=== PATIENT | male | born 1975 | race Caucasian/White ===

== ENCOUNTER 2020-07-23 21:31 | Inpatient (IN) | payer OTHER ==
[~2020-07-23] VITALS: Ht 180.3 cm; Wt 113.4 kg
[~2020-07-23 21:31] MED LIST: NORCO 5-325 TA1 EACH PO
[2020-07-23 21:37] VITALS: BP 102/57
[2020-07-23 22:06] LABS: HEMATOCRIT 40.7 % (42.0-52.0); MCH 29.7 pg (26.0-34.0); MCHC 34.4 g/dL (28.0-37.0); MCV 86.2 fL (80.0-100.0); MPV 7.7 fl. (7.2-11.1); NUCLEATED RBCS 0 /100WBC; PLATELET COUNT* 404 thou/uL (150-400); RBC 4.72 mil/uL (4.50-6.00); RDW-CV 13.3 % (10.5-14.5); WBC 8.5 thou/uL (4.0-11.0)
[2020-07-23 22:14] LABS: BE -2.1 mmol/L (-2 to +3); PCO2 28.3 mmHg (35.0-45.0); PO2 70.4 mmHg (75.0-100.0)
[2020-07-23 22:18] LABS: CALCIUM 8.1 mg/dL (8.5-10.1); CREATININE 2.1 mg/dL (0.6-1.3); POTASSIUM 3.2 mmol/L (3.5-5.1)
[2020-07-23 22:24] LABS: ALBUMIN 2.8 g/dL (3.4-5.0); MAGNESIUM 1.4 mg/dL (1.8-2.4); TOTAL PROTEIN 7.3 g/dL (6.4-8.2)
[2020-07-23 22:31] LABS: ABSOLUTE EOSINOPHILS 0.1 thou/uL (0.0-0.7); ABSOLUTE LYMPHOCYTES 0.4 thou/uL (0.8-5.3); ABSOLUTE MONOCYTES 0.2 thou/uL (0.0-1.2); ABSOLUTE NEUTROPHILS 7.8 thou/uL (1.6-8.1); PLATELET ESTIMATE INCREASED
[2020-07-23 23:31] LABS: APTT 32.7 Seconds (25.0-31.3); INR 1.1; PROTIME 11.3 Seconds (9.20-11.50)
[2020-07-24 00:18] LABS: URINE BLOOD TRACE (Negative); URINE CLARITY CLEAR; URINE COLOR YELLOW; URINE GLUCOSE-RANDOM TRACE (Negative); URINE KETONES TRACE (Negative); URINE LEUKOCYTES-REFLEX NEGATIVE (Negative); URINE PROTEIN 3+ (Negative); URINE SPECIFIC GRAVITY >= 1.030 (1.005-1.030)
[2020-07-24 00:24] LABS: ICTOTEST (BILI CONFIRMATORY) QNS (Negative); URINE BILIRUBIN 2+ (Negative); URINE NITRITE-REFLEX POSITIVE (Negative)
[2020-07-24 01:19] LABS: COARSE GRANULAR CASTS 0-3 Few /LPF (None Seen); SQUAMOUS 0-3 Few /LPF (0-3)
[2020-07-24 01:20] LABS: BACTERIA-REFLEX >30 Many /HPF (None Seen); URINE RBC None Seen /HPF (0-2); URINE WBC-REFLEX 6-15 Few /HPF (0-5)
[2020-07-24 01:21] LABS: CRYSTALS None Seen /LPF (None Seen)
[2020-07-24 03:55] VITALS: BP 96/37
--- NOTE | 2020-07-24 06:29 | NUR ---
CENTRAL LINE TRIPLE LUMEN PLACED AT 0535 FENTANYL 100MCG GIVEN IVP WHILE PLACING CENTRAL LINE PT WENT INTO SVT. ADENOSINE 6 MG GIVNE IVP AT 0531 DR PREPARING TO INTUBATE 0541 SUCCINYLCHOLINE 200MG IVP, ETOMIDATE 20MG IVP INTUBATED WITH 7.5 ETT 25 @RABIA LIP VERSED 5MG IVP GIVEN AT 0543 VERSED 5 MG IVP GIVEN AT 0553 VERSED GTT STARTED AT 5 AT 0601 DEXAMETHASONE 12 MG IVP AT 0548 CHARLES 16 FR INSERTED AT 0551 0558 XRAY VERIFIED ETT PLACEMENT OGT PLACEMENT AND CENTRAL LINE PALCEMENT PT PLACED ON VENT SETTING TV 400 RATE 14 FIO2 100% AMD PEEP 5
[2020-07-24 07:10] VITALS: BP 127/75
--- NOTE | 2020-07-24 07:13 | NUR ---
0630 [facility] HERE FOR TRANSPORT TO [facility]. PT PREPARED FOR TRANSPORT. PT DCD AT 0710 WITH [facility]. PROPOFOL GTT AND VERSED GTT DCD FOR TRANSPORT. [facility] CALLED AND NMOTIFIED OF PT RECIEVING CEFTRIAXONE AND KCL WAS STARTED ORDERED.
--- NOTE | 2020-07-24 11:21 | EKG ---
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 : 1975 Requested By: Maxine Culver Order Number: [id number] MD: Carlos Osborne Measurements Intervals [place] Rate: 103 P: 57 [place]: 124 QRS: 7 QRSD: 95 T: 110 QT: 373 QTc: 489 Interpretive Statements Sinus tachycardia Abnormal T, consider ischemia, lateral leads Baseline wander in lead(s) V3,V6 No previous ECG available for comparison Electronically Signed On 07-24-2020 11:21:00 CDT by Carlos Osborne [email or web address] <ELECTRONICALLY SIGNED> By: Carlos Osborne MD, [facility] 07/24/20 1121 52 52 Carlos Osborne MD, [facility] /EPI
--- NOTE | 2020-07-24 16:27 | EKG ---
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 : 1975 Requested By: Maxine Culver Order Number: [id number] Sadia MD: Carlos Osborne Measurements Intervals [place] Rate: 106 P: 58 MT: 129 QRS: 30 QRSD: 109 T: 114 QT: 456 QTc: 606 Interpretive Statements Sinus tachycardia Probable left atrial enlargement Low voltage, extremity leads Repol abnrm, prob ischemia, anterolateral lds Prolonged QT interval Baseline wander in lead(s) III,aVF,V2,V3,V4,V6 Compared to ECG 07/23/2020 21:53:21 Low QRS voltage now present Early repolarization now present Prolonged QT interval now present Possible ischemia still present Electronically Signed On 07-24-2020 16:26:58 CDT by Carlos Osborne [email or web address] <ELECTRONICALLY SIGNED> By: Carlos Osborne MD, [facility] 07/24/20 1626 0533 0533 Carlos Osborne MD, [facility] /EPI
== END 2020-07-24 06:50 | disposition short-term general hospital (02) | DRG 208 ==
LOC: M.ERS 21:31 → M.TBA-ER 07-24 01:49
PROVIDERS: Personal Emergency Response Attendant; ADMIT Internal Medicine; ATTEND Internal Medicine
PROC: 0BH18EZ Insertion of Endotracheal Airway into Trachea, Via Natural or Artificial Opening Endoscopic (ICD-10-PCS; principal; 2020-07-24)
PROC: 05HY33Z Insertion of Infusion Device into Upper Vein, Percutaneous Approach (ICD-10-PCS; 2020-07-24)
PROC: 5A1935Z Respiratory Ventilation, Less than 24 Consecutive Hours (ICD-10-PCS; 2020-07-24)
DX: U07.1 COVID-19 (principal); J96.01 Acute respiratory failure with hypoxia; I47.1 Supraventricular tachycardia; I10 Essential (primary) hypertension; Z79.899 Other long term (current) drug therapy

== ENCOUNTER 2020-09-06 17:16 | Inpatient (IN) | payer OTHER ==
[~2020-09-06] VITALS: Ht 180.3 cm; Wt 85.3 kg
--- NOTE | ~2020-09-06 | CON ---
[address] [address] CONSULTATION Name: GERALD RICK Room: [address] ADM IN M.R.#: [id number] Admission: 09/06/20 Attend Phys: Juan A Clinton MD Discharge: Date of : 79 Report #: [id number] THIS REPORT FOR: cc: FAM - No family physician/PCP FAM - No family physician/PCP Linda Posadas MD ~ DOC #: [id number] THADDEUS Schroeder DATE OF CONSULTATION: 09/22/2020 The patient does not have a PCP. REASON FOR CONSULTATION: Removal of PEG tube. Please note at the time of this dictation, the patient was seen and physically examined by myself. HISTORY OF PRESENT ILLNESS: This is a 45-year-old male who originally presented to the emergency room here at [place] on 07/23 with an acute appendicitis that had ruptured and was transferred to [place], also found to have COVID pneumonia. He underwent an exploratory laparotomy for that at that particular time then requiring a prolonged vent usage. He then underwent a trach and PEG tube placement on 08/[address] Marquez. He did an EGD that was completely normal with the placement of a 20-[place] PEG at 2.5 cm. The patient is no longer in need of his PEG tube. He has passed his video swallow and is anticipating going home here very soon. The patient is still on Eliquis because he developed a DVT during his hospital stay. PAST MEDICAL HISTORY: Recent COVID, perforated appendix. He had acute renal failure, gangrene of bilateral toes. He developed a left upper extremity DVT. PAST SURGICAL HISTORY: Exploratory lap, trach and PEG. FAMILY HISTORY: Noncontributory. SOCIAL HISTORY: He has a heavy alcohol use, quantity unknown; history of amphetamine use, but no known history of any smoking. REVIEW OF SYSTEMS: Twelve-point review of systems is essentially negative except what is mentioned in the HPI. ALLERGIES: None. MEDICATIONS: [place], [place] [address] CONSULTATION Name: GERALD RICK Room: [address] IN [facility]#: [id number] Admission: 09/06/20 Attend Phys: Juan A Clinton MD Discharge: Date of : 79 Report #: [id number] PHYSICAL EXAMINATION: VITAL SIGNS: Temperature 37.1, pulse 94, respirations 18, blood pressure 117/81. HEART: Regular rate and rhythm. LUNGS: Clear. ABDOMEN: Soft, positive bowel sounds in all 4 quadrants with a PEG tube noted in the upper abdomen. Site is clean without any drainage noted. LABORATORY DATA: Hemoglobin 11.4, white count is 11.3, platelets 527. IMPRESSION: 1. PEG tube removal. 2. Anticoagulant therapy, Eliquis, secondary to DVT. 3. Post COVID. 4. History of ruptured appendicitis with peritonitis. 5. History of heavy substance abuse, both alcohol and amphetamine. PLAN: 1. EGD today with Dr. Posadas to remove the PEG tube atraumatically secondary to his anticoagulant therapy that he needs to remain on. 2. Further recommendations to be made after the procedure has been performed. Thank you for allowing us to participate in this patient's care. Please do not hesitate to call with any questions in regard to this consult. MD ELIZ Villalta/HUE By: 0807 [id number] Posadas MD /nt
[2020-09-06] MEDS ORDERED: LORATIDINE 10 M10 M1 PO (19:31)
[2020-09-06] MEDS ORDERED: IPRAT-ALBUT 0.5-3 ML INH (19:32)
[2020-09-06] MEDS ORDERED: SEROQUEL XR1 EACH PO (19:35)
[2020-09-06] MEDS ORDERED: ALPRAZOLAM XR3 MG PO (19:37)
[2020-09-06] MEDS ORDERED: PERIDEX 0.12%473 M1 MUCOUS MEM (19:38)
[2020-09-06] MEDS ORDERED: PROTONIX40 M2 PO (19:40)
[2020-09-06] MEDS ORDERED: METOCLOPRAMIDE 55 M1 PO (19:41)
[2020-09-06] MEDS ORDERED: HUMALOG KW100 UNIT/1 (19:43)
[2020-09-06 20:00] VITALS: BP 103/68
--- NOTE | 2020-09-07 04:29 | NUR ---
PT ARRIVED TO FLOOR AT 1845 ACCOMPANIED BY GIRLFRIEND YUN SARAHI, HIS DPOA FROM [facility]. PT SETTLED INTO BED AND ADMISSION DATABASE COMPLETED. PT IS S/P COVID 19, PNEUMONIA, REMOVAL OF RUPTURED APPENDIX, SEPSIS. PER PT HE WAS IN A COMA FOR 38 OF THE PAST 45 DAYS. ALERT AND ORIENTED X4, COOPERATIVE WITH CARES. PT HAS TRACH AND PEG TUBE. TAKES SOME MEDS PER TUBE AND SOME MEDS PO. RT TO ROOM TO ASSIST WITH TREATMENTS AND TRACH SUCTIONING. COPIOUS AMOUNTS OF THICK MUCOUS SUCTIONED. PT DOES NOT HAVE EXTRA OBDURATOR AT BEDSIDE, CALL CENTER RN ADVISED. CURRENT TRACH IS A PORTECH WITH 7.5 INNER DIAMETER AND 10.5 OUTER DIAMETER. ADVISED THAT EXTRA TRACH MAY HAVE TO COME FROM [facility]. ALSO REQUESTED 10 ICELANDIC SUCTION CATHETERS. TRACH CARE PROVIDED WITH RT. PT HAS SPEAKING VALVE. RIGHT DOUBLE LUMEN IJ. ACCUCHECK AT HS WAS 93. PT ON CONTACT ISOLATION FOR MDR PSEUDOMONAS IN SPUTUM. VOIDED PER URINAL OVERNIGHT. PHOTOS TAKEN OF TOES ON BOTH FEET, IN PROCESS OF HEALING. HIMS, WOUND CARE AND PULMONARY CONSULTS ORDERED. CALL LIGHT IN REACH, BED ALARM ON FOR SAFETY. HOURLY ROUNDING IN PROGRESS, WILL CONTINUE TO MONITOR.
[2020-09-07 04:31] LABS: HEMATOCRIT 28.9 % (42.0-52.0); HEMOGLOBIN 10.2 gm/dL (14.0-18.0); MCH 32.7 pg (26.0-34.0); MCHC 35.2 g/dL (28.0-37.0); MCV 92.8 fL (80.0-100.0); MPV 7.7 fl. (7.2-11.1); RBC 3.12 mil/uL (4.50-6.00); RDW-CV 16.3 % (10.5-14.5); WBC 8.8 thou/uL (4.0-11.0)
[2020-09-07 05:07] LABS: CALCIUM 8.8 mg/dL (8.5-10.1); CREATININE 0.7 mg/dL (0.6-1.3); POTASSIUM 4.3 mmol/L (3.5-5.1)
[2020-09-07 07:44] VITALS: BP 104/75
--- NOTE | 2020-09-07 09:57 | NUR ---
WOUND NURSE: PATIENT SEEN TO ADDRESS WOUNDS AFFECTING DISTAL TOES ON RIGHT FOOT AND 1ST 3 DIGITS ON THE LEFT FOOT. ALL WITH STABLE BLACKENED ESCHARS AND DRIED LEATHERY EPIDERMIS. OFFERED PATIENT TO BE SEEN BY PERFORMANCE TESTER, BUT HE REFUSED STATING HE WANTS TO WAIT UNTIL IT'S CONFIRMED THAT HE IS INSURED THROUGH MEDICAID. RECOMMEND PAINTING AFFECTED TOES WITH BETADINE DAILY, LET DRY, AND LEAVE OPEN TO AIR. WILL CHANGE POT IF ESCHARS BECOME UNSTABLE. PATIENT INSTRUCTED ON MEASURES TO PROMOTE HEALING AND STATES HE UNDERSTANDS.
[2020-09-07 20:31] VITALS: BP 101/71
--- NOTE | 2020-09-08 05:55 | NUR ---
ASSUMED PT CARE AT 1930. PT ALERT AND ORIENTED X4, POLITE AND COOPERATIVE WITH CARES. PT RESTING IN BED AT SHIFT CHANGE ON 1.5L 02 PER NC. PT TRACH BEING HUMIDIFIED WHICH PT REQUESTED RT DC MIDSHIFT. TRACH CARE PROVIDED, NO SUCTIONING THIS SHIFT. PT VOIDED PER URINAL OVERNIGHT. TAKES PILLS WITH NECTAR THICKENED LIQUIDS. PT HAD TWO CHOCOLATE PUDDINGS TWICE SNACK. XANAX AT 0250 FOR ANXIETY. PT ON ISOLATION FOR MDR PSEUDOMONAS IN SPUTUM. PER [facility] TO TAKE PT TO [facility] WAITING ROOM FROM 10:00-11:00 TODAY TO SEE GIRLFRIEND AND THEIR CHILDREN. ATTEMPTS TO OBTAIN EXTRA TRACH FOR BEDSIDE CONTINUE. CALL LIGHT IN REACH, BED ALARM ON FOR SAFETY. HOURLY ROUNDING IN PROGRESS, WILL CONTINUE TO MONITOR.
[2020-09-08 08:10] VITALS: BP 108/73
--- NOTE | 2020-09-08 17:17 | NUR ---
I have reviewed the documentation by TELMA HOWARD from 09/04/20 to 09/08/20 and I concur with it. CHAD PADGETT
[2020-09-08 20:19] VITALS: BP 129/66
--- NOTE | 2020-09-09 05:11 | NUR ---
ASSUMED PT CARE AT 1930. PT ALERT AND ORIENTED X4, POLITE AND COOPERATIVE WITH CARES. PT RESTING IN BED AT SHIFT CHANGE. TAKES PILLS WHOLE WITH NECTAR THICKENED LIQUIDS WITHOUT DIFFICULTY. TRACH IN PLACE, SUCTIONED X1 BY RT. PT HAS SPEAKING VALVE. DOUBLE LUMEN IJ. ON SPECIAL CONTACT ISOLATION FOR MDR PSEUDOMONAS IN SPUTUM. VOIDED PER URINAL OVERNIGHT. TYLENOL X1 FOR GENERALIZED DISCOMFORT. ATIVAN X1 FOR ANXIETY. PT SLEPT MOST OF SHIFT. CALL LIGHT IN REACH, BED ALARM ON FOR SAFETY. HOURLY ROUNDING IN PROGRESS, WILL CONTINUE TO MONITOR.
[2020-09-09 10:39] VITALS: BP 113/71
[2020-09-09 10:42] LABS: HEMATOCRIT 31.6 % (42.0-52.0); HEMOGLOBIN 10.5 gm/dL (14.0-18.0); MCH 30.7 pg (26.0-34.0); MCHC 33.3 g/dL (28.0-37.0); MCV 92.1 fL (80.0-100.0); MPV 7.7 fl. (7.2-11.1); RBC 3.44 mil/uL (4.50-6.00); RDW-CV 15.9 % (10.5-14.5); WBC 7.7 thou/uL (4.0-11.0)
[2020-09-09 10:48] LABS: CALCIUM 8.9 mg/dL (8.5-10.1); CREATININE 0.6 mg/dL (0.6-1.3)
--- NOTE | 2020-09-09 18:32 | NUR ---
RECEIVED REPORT AROUND 0715. ASSUMED CARE. VS AND ASSESSMENT CHARTED. TRACH INTACT. PEG TUBE INTACT. NOT BEING USED. TRACH CARE DONE THIS SHIFT. MEDS GIVEN PER MAY. PT HAD ANXIETY THROUGH OUT SHIFT. TELE PSYCH VISITED VIA TELEMED THIS SHIFT. RECOMMENDATIONS GIVEN TO . THERAPIES WORKED WITH PT THIS SHIFT. HOURLY ROUNDING PERFORMED. ISOLATION INTACT. UPDATED ON PT. AT BEDSIDE NOW. PT VERY CONCERNED ABOUT TRACH AND PEG TUBE COMING. HOSPITALIST TODAY AWARE. . CALL LIGHT WITH IN REACH. WILL CONTINUE TO MONITOR.
[2020-09-09 20:18] VITALS: BP 111/70
--- NOTE | 2020-09-10 05:26 | NUR ---
ASSUMED PT CARE AT 1930. PT ALERT AND ORIENTED X4, POLITE AND COOPERATIVE WITH CARES. TYLENOL AT HS PER PT REQUEST. PT LESS ANXIOUS THIS SHIFT. TRACH SUCTIONED X1. ISOLATION CONTINUES. ON 2L 02 PER NC. STRONG PRODUCTIVE COUGH. CALL LIGHT IN REACH, BED ALARM ON FOR SAFETY. HOURLY ROUNDING IN PROGRESS, WILL CONTINUE TO MONITOR.
[2020-09-10 07:05] VITALS: BP 120/79
--- NOTE | 2020-09-10 17:20 | NUR ---
PT REMAINED ALERT AND ORIENTED. PT ANXIOUS THIS SHIFT, MEDS GIVEN. TALKED WITH PATIENT, HAD PATIENT WALK IN ROOM. PROVIDED WORD SEARCHES TO HELP CALM HIM DOWN. PUDDING GIVEN A SNACK. UP IN CHAIR FOR MEALS. FALL RISK PRECAUTIONS IN PLACE. HOURLY ROUNDING COMPLETED.
[2020-09-10 20:00] VITALS: BP 124/81
--- NOTE | 2020-09-11 06:31 | NUR ---
ASSUMED CARE AT 1915. ALERT AND ORIENTED. ANXIOUS. O2 2L NC. ISOLATION FOR MDR PSEUDOMONAS. LOOSE COOUGH. SPUTUM BEIGE AND THICK. DRSG CARE TO TRACH DONE. ATIVAN GIVEN FOR RESTLESSNESS. IV TL IJ CATHETER. USED URINAL. WANTS TO HAVE SHOWER TODAY. SLEPT SOME. CALL LIGHT IN REACH AND BED ALARM ON.
[2020-09-11 09:00] VITALS: BP 132/70
[2020-09-11 17:30] VITALS: BP 128/90
--- NOTE | 2020-09-11 18:26 | NUR ---
ALERT AND ORIENTED X4. UP WITH 1 ASSIST, GAIT BELT AND WALKER. IMPULSIVE AT TIMES. DENIES PAIN. CONTIENT OF BOWEL AND BLADDER. HAS PEG TUBE TO ABDOMEN. TRACH PATENT AT THIS TIME. MECROTIC TOES OPEN TO AIR. O2 SATS REMAINS IN 90'S ON ROOM AIR. ON MECH. CHOPPED DIET WITH NECTAR LIQUIDS FOR MEALS AND [place]LAYTON FREE WATER BETWEEN MEALS. ABDOMEN INCISIONS HEALED. USES CALL LIGHT FOR ASSIST. FALL PRECAUTIONS IN PLACE. BED ALARM AND CHAIR ALARM USED. ANXIOUS THIS EVENING AND ATIVAN GIVEN.
[2020-09-11 19:00] VITALS: BP 137/75
--- NOTE | 2020-09-11 22:16 | CON ---
[address] [address] CONSULTATION Name: PRABHJOTGERALD M Room: [address] IN M.R.#: [id number] Admission: 09/06/20 Attend Phys: Juan A Clinton MD Discharge: Date of : 79 Report #: [id number] THIS REPORT FOR: cc: TAMIE - No family physician/PCP TAMIE - No family physician/PCP Georges Washington MD ~ DOC #: [id number] Georges Washington MD DATE OF CONSULTATION: 09/08/2020 REQUESTING PHYSICIAN: Juan A Clinton MD INDICATION FOR CONSULTATION: New admission to rehabilitation. The patient has a tracheostomy. HISTORY OF PRESENT ILLNESS: This is a 45-year-old gentleman, past medical history includes a history of amphetamine as well as alcohol abuse. There is no known history of smoking. The patient was admitted to [facility]. After initially presenting to our hospital in the Emergency Room, he was found to have COVID-19 as well as acute pancreatitis. There was no ICU bed available in our hospital and therefore, he was transferred to [facility]. The patient did undergo an appendectomy. He did have peritonitis secondary to perforated appendix. He was on the ventilator. He did develop a DVT in the left upper extremity. Eventually, he had a tracheostomy. He is now off the ventilator. He is able to swallow. He is on a mechanical chopped diet with nectar thick liquids. He is currently off oxygen. He is wearing a speaking valve with his tracheostomy. The patient does have bilateral gangrene of toes. The patient did report mild shortness of breath at rest. He also is reported to have had thick yellow sputum production. He is reported to have had some crusting of secretions around his tracheostomy as well. The patient, however, did not appear to be in any distress and overall stated that he feels that he is improving. He does not have swelling of lower extremities or calf pain. There is no fever or chills. He does not describe upper respiratory complaints. PAST MEDICAL HISTORY: Recent COVID-19 as well as perforated appendix leading to peritonitis. Acute renal failure, from which he has recovered. His creatinine is now normal. Gangrene of bilateral toes, left upper extremity DVT, dysphagia. He is status post pigtail placement. He is now taking orally as well. SOCIAL HISTORY: There is a history of heavy alcohol use. There is also a history of amphetamine use. There [place] no [place] [address] CONSULTATION Name: GERALD RICK Room: [address] [place] [facility]#: [id number] Admission: 09/06/20 Attend Phys: Juan A Clinton MD Discharge: Date of : 79 Report #: [id number] ALLERGIES: No known drug allergies. CURRENT MEDICATIONS: The list is in NextGame and this is reviewed. PHYSICAL EXAMINATION: GENERAL: He is alert, awake, and oriented. VITAL SIGNS: His heart rate was around 100. Blood pressure of 108/73, respiratory rate 17. He is afebrile with a temperature of 36.8. HEENT: Head is normocephalic and atraumatic. He had a tracheostomy with a speaking valve in place. NECK: Does not show raised JVP. LUNGS: Breath sounds are bilaterally equal. No added sounds. HEART: Regular. He is mildly tachycardic. No murmur. ABDOMEN: Soft and nontender. LOWER EXTREMITIES: Show no edema, no calf tenderness. There is gangrene of his toes noted. LABORATORY DATA: The patient's lab work is in NextGame and this is reviewed. The patient's chest x-ray is reviewed which shows pulmonary infiltrates, but these are in fact better than his previous available chest x-rays. His creatinine has now normalized. ASSESSMENT AND PLAN: 1. Acute respiratory failure, status post tracheostomy. At this time, the patient is off oxygen. I would recommend administration of oxygen only if indicated per pulse ox. The patient does have thick secretions and has had some crusting in the tracheostomy as well. Therefore, in order to avoid mucus plugging, I recommend that we should remove the speaking valve at night between 9:00 p.m. and 6:[address] him on a trach shield with humidity in these hours. During the daytime, okay to leave him off the trach shield as long as he is wearing the speaking valve. If the patient does for any reason remove the speaking valve during the daytime, then in that case, I would recommend administering humidity with a trach shield during the day as well. 2. Pulmonary infiltrates. These, in fact, are looking better than previous available chest x-rays. I did repeat a chest x-ray today. Considering that the patient has ongoing thick mucus production from the tracheostomy, I went ahead and requested a sputum culture if this continues. However, it is noted that I understand he has already been extensively treated with antibiotics at [facility] and considering that his chest x-ray is also better, if we do have a positive culture, I would only recommend treating it if he is symptomatic from it as the positive culture could also indicate colonization. 3. Dysphagia, status post PEG. I understand he is taking orally now. I recommended strict aspiration precautions. I understand he is on a nectar thick liquid diet per the speech therapist. [address] [place] [address] CONSULTATION Name: GERALD RICK Sridhar Room: [address] ADM IN M.R.#: [id number] Admission: 09/06/20 Attend Phys: Juan A Clinton MD Discharge: Date of : 79 Report #: [id number] 4. Recent COVID-19. He is now off isolation. 5. Recent peritonitis secondary to appendicitis. 6. Acute renal failure, this has now resolved. 7. History of amphetamine and alcohol use. 8. Deep venous thrombosis. Continue Eliquis. He will need a followup venous Doppler of left upper extremity down the line. 9. Gangrene toes bilaterally. We will try to get more information from [place] regarding whether he was evaluated by [facility]. It will be possible that at a future time he needs amputation on parts of his toes. 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 Recommend continuing with physical therapy and occupational therapy. I will check on him again on Friday. Please call Dr. Moncada if any pulmonary issues during this weekend. Georges Washington MD AP/SIM/DUR <ELECTRONICALLY SIGNED> By: Georges Washington MD 09/11/20 2216 1609 0101AMD clay Moreno
--- NOTE | 2020-09-12 05:22 | NUR ---
ASSUMED CARES AT 1915. ALERT AND ORIENTED. PT VERY ANXIOUS AND RESTLESS/JITTERY IN THE EVENING. C/O NOT BEING ABLE TO SLEEP. PT REQUESTED AMBIEN AND SO THIS WAS GIVEN. PT QUESTIONING IF GABAPENTIN CAUSING RESTLESSNESS AND JITTERING. SAYS DOES NOT WANT TO TAKE ANY MEDS EXCEPT BLOOD THINNER. SAYS THAT IS WANTING TO GO HOME. TRACH CARE DONE. PT HAS PRODUCTIVE LOOSE COUGH. BILATEREAL GANGRENE TOES. PT HAS BEEN REFUSING TRACH SHIELD OVERNIGHT. MIN ASSIST WITH GAIT BELT AND WALKER. USED URINAL. SLEPT ONLY FEW HOURS. CALL LIGHT IN REACH AND BED ALARM ON.
[2020-09-12 07:48] VITALS: BP 136/86
--- NOTE | 2020-09-12 15:01 | NUR ---
INITIAL ASSESSMENT: PATIENT ADMITTED TO THE [facility] ON 09/06/20 WITH A DIAGNOSIS OF MYOPATHY. PT A&O, AND INDEPENDENT PRIOR TO HIS INITIAL ADMIT. PT RESIDES AT HOME WITH SPOUSE AND CHILDREN. PT USED 0 DME PRIOR TO ADMIT. PT HAS 0 PAST HX OF HH OR SNF. CM ORIENTED PT TO THE [facility] AND PROCESSES, RESIDENTS RIGHTS INFO, TEAM CONFRENCE AND TO THE ROLE OF CM. CM WILL REMAIN AVAILABLE TO ASSIST AND FOLLOW NEEDED.
--- NOTE | 2020-09-12 16:06 | NUR ---
PT WANTING TO LEAVE TODAY. PT EDUCATED ON NEED TO BE HERE AND WORK WITH THERAPIES SO HE COULD ADVANCE ENOUGH TO GO HOME. LINE DEPARTMENT SUPERVISOR, LINO, HERE TO TALK WITH PT. PT SEEN BY DR BECERRIL. SURGICAL CONSULT ORDERED FOR RECOMENDATIONS ON TRACH. TRACH REMOVED BY DR JEROME. SUTURES TO TRACH SITE LEFT IN PLACE. TO BE REMOVED IN 2 [address] JEROME. MEPILEX DRESSING IN PLACE. RIJ REMOVED. PSYCH CONSULT ORDERED BY DR VUONG. PT REPORTS THAT HIS MEDICATIONS ARE NOT HELPING. SEROQUEL TITRATED DOWN PER PSYCH RECOMENDATION. PT REFUSED ALL AM MEDS EXCEPT ELIQUIS. DR VUONG SPOKE WITH PT ABOUT TAKING HIS MEDICATIONS. PT TOOK 1400 GABAPENTIN AND PRN ATIVAN. PT HAS BEEN AGITATED ALL DAY. SPOKE WITH PT NUMOROUS TIMES TO GIVE REASSURANCE. PEG TUBE IN PLACE. PT TO HAVE VIDEO SWALLOW T[place]. FALL PRECAUTIONS IN PLACE. CALL LIGHT IN REACH. PT STATES THAT HE FEELS LIKE HE IS IN [facility]. PT TAKEN OUTSIDE BY GIANCARLO WITH PT.
--- NOTE | 2020-09-12 17:22 | NUR ---
TELEPSYCH CONSULT SCHEDULED FOR [place] AM BETWEEN 0700 AND 0900.
--- NOTE | 2020-09-12 19:08 | NUR ---
PT NOT TO HAVE OUTSIDE FOOD BROUGHT IN UNTIL CLEARED WITH SPEECH.
[2020-09-12 19:30] VITALS: BP 121/79
[2020-09-13 04:40] LABS: HEMATOCRIT 27.8 % (42.0-52.0); HEMOGLOBIN 9.6 gm/dL (14.0-18.0); MCH 30.6 pg (26.0-34.0); MCHC 34.5 g/dL (28.0-37.0); MCV 88.8 fL (80.0-100.0); MPV 7.5 fl. (7.2-11.1); RBC 3.13 mil/uL (4.50-6.00); RDW-CV 15.6 % (10.5-14.5); WBC 9.9 thou/uL (4.0-11.0)
[2020-09-13 04:45] LABS: CALCIUM 8.8 mg/dL (8.5-10.1); CREATININE 0.8 mg/dL (0.6-1.3); POTASSIUM 3.6 mmol/L (3.5-5.1)
--- NOTE | 2020-09-13 05:32 | NUR ---
ASSUMED CARES AT 1920. ALERT AND ORIENTED. ANXIOUS. PT WAS AGREEABLE TO TAKING BEDTIME MEDS. MELATONIN AND ATIVAN GIVEN. DRSG TO OLD TRACH SITE INTACT. BETADINE APPLIED TO NECROTIC TOES. MIN ASSIST WITH WALKER. USED URINAL. REMAINS ON ISOLATION. WAS ABLE TO SLEEP FEW HOURS. CALL LIGHT IN REACH AND BED ALARM ON.
[2020-09-13 08:16] VITALS: BP 129/87
--- NOTE | 2020-09-13 08:40 | NUR ---
THIS PLATE WASHER IS IN AGREEMENT WITH TREATMENT NOTE DOCUMENTED BY GERMAINE NEWMAN FOR THIS DAY. OSCAR BARRT
--- NOTE | 2020-09-13 09:41 | NUR ---
WOUND NURSE: PATIENT SEEN FOR FOLLOW UP ASSESSMENT PERTAINING TO GANGRENOUS TOES ON BILATERAL FEET. ALL REMAIN STABLE WITH INTACT ESCHARS AND NO DRAINAGE. PLAN TO CONTINUE THE SAME PLAN OF CARE.
--- NOTE | 2020-09-13 16:59 | NUR ---
PT WORKED WITH THERAPIES. UP WITH GAIT BELT, WALKER, AND ASSIST X1. DENIES NEED FOR PAIN MEDICATION. PRN ATIVAN GIVEN FOR ANXIETY. DIET ADVANCED AFTER SWALLOW STUDY TO REGULAR WITH THIN LIQUIDS. TOLERATING WELL. DR CHADWICK SPOKE WITH YUN Rose, TO UPDATE HER ON PT CONDITION AND ADDRESSED HER CONCERNS. FALL PRECAUTIONS IN PLACE. CALL LIGHT IN REACH.
[2020-09-13 20:08] VITALS: BP 135/81
--- NOTE | 2020-09-14 06:06 | NUR ---
ASSUMED CARES AT 1920. ALERT AND ORIENTED. ANXIOUS. SBA WITH GAIT BELT AND WALKER. PEG TUBE NOT IN USE. BILATERAL GANGRENE TOES. ATIVAN AND MELATONIN GIVEN. DRSG TO OLD TRACH SITE CHANGED. SLEPT MOST OF THE NIGHT. CALL LIGHT IN REACH AND BED ALARM ON.
[2020-09-14 07:50] VITALS: BP 116/78
--- NOTE | 2020-09-14 15:09 | NUR ---
TEAM CONFRENCE MEETING HELD YESTERDAY. PLAN TO RE-TEAM AND HAVE THE PT REMAIN ON THE UNIT FOR ANOTHER WEEK TO CONTINUE THERAPIES. PT AND SPOUSE IN AGREEMENT WITH THE PLAN. PT PROGRESSING WELL TOWARDS GOALS, BUT BARRIERS ARE ANXIETY, DEPRESSION, MANIPULATION, MEMORY, DEBILITY, FETIGUE, AND SOCIAL ISSUES. CM WILL REMAIN AVAILABLE TO ASSIST AND FOLLOW NEEDED.
--- NOTE | 2020-09-14 16:19 | NUR ---
PATIENT COMPLETED THERAPY THIS SHIFT ORDERED. PRN ATIVAN GIVEN X 1 THIS SHIFT ORDERED. VOIDING PER URINAL, BM NOTED THIS SHIFT. PER ST PATIENT WILL BE DISCHARGED FROM THEIR SERVICES STARTING TOMORROW. TRACH SITE CLEANED AND NEW MEPILEX PLACED, SUTURES TO BE REMOVED TOMORROW. GABAPENTIN WAS INCREASED PER TELE PYSCH RECOMMENDATIONS, NEW DOSE STARTED THIS AFTERNOON. PATIENT UP FREQUENTLY TO CHAIR.
[2020-09-14 20:23] VITALS: BP 137/92
--- NOTE | 2020-09-15 05:13 | NUR ---
ASSUMED PT CARE AT 1930. PT ALERT AND ORIENTED X4, POLITE AND COOPERATIVE WITH CARES. DRESSING TO OLD TRACH SITE C/D/I. BILATERAL GANGRENE TOES. PT USED URINAL TO VOID. NO STOOL THIS SHIFT. ATIVAN AND MELATONIN AT HS, PT SLEPT WELL. CALL LIGHT IN REACH, BED ALARM ON FOR SAFETY. HOURLY ROUNDING IN PROGRESS, WILL CONTINUE TO MONITOR.
[2020-09-15 07:50] VITALS: BP 109/73
--- NOTE | 2020-09-15 09:55 | NUR ---
I have reviewed the documentation by TELMA HOWARD from 09/11/20 to 09/15/20 and I concur with it. SERVANDO MCINTOSH
--- NOTE | 2020-09-15 16:58 | NUR ---
PATIENT COMPLETED THERAPIES THIS SHIFT ORDERED. UP WITH ASSISTANCE; GAIT BELT AND CANE. PRN ATIVAN GIVEN X 1 THIS AFTERNOON. SUTURES DC'D FROM TRACH SITE THIS AM PER ORDERS, SITE CLEANED AND DRESSING REPLACED. VOIDING PER URINAL, NO BM NOTED THIS SHIFT. PATIENT SO HERE AT BEDSIDE THIS EVENING.
--- NOTE | 2020-09-15 17:07 | PATH ---
[facility] [address] [place] [address] PATHOLOGY RPT PROCEDURE Name: TYLER RICK Room: [address] [place] .R.#: [id number] Admission: 09/06/20 Date of : 79 Discharge: Report #: [id number] Path Case #: [id number] [facility] Accession Number: [id number] . 01 Material submitted: . trachea - FOREIGN OBJECT . 01 Clinical history: . MYOPATHY . 02 Diagnosis: Gross diagnosis "from trachea": - Foreign body identified. (LAURA/db; 09/15/2020) LBQ 09/15/2020 1447 Local . 02 Electronically signed: . John Reed MD, Pathologist NPI- [id number] . 01 Gross description: . The specimen is received in formalin, labeled "Tyler Rick, from trachea" are 2 green brown cylindrical fragments of possible vegetable material measuring up to 4.5 x 1 x 0.8 cm for gross examination only. The specimen is photographed.([facility]; 09/10/2020) . KYLE/KYLE 09/10/2020 1838 Local . 02 Pathologist provided ICD-10: G72.9 . 02 CPT . [id number] Specimen Comment: A courtesy copy of this report has been sent to [phone] Specimen Comment: Report sent to Performed at: 01 [facility] [address], [place] [id number] MD Marcio Flores MD Phone: [phone] Performed at: 02 [facility] [address], [place], [place] [id number] MD John Reed MD Phone: [phone]
[2020-09-15 20:28] VITALS: BP 135/90
--- NOTE | 2020-09-16 05:29 | NUR ---
ASSUMED PT CARE AT 1930. PT ALERT AND ORIENTED X4, POLITE AND COOPERATIVE WITH CARES. PT UP WITH ASSIST OF ONE, GAIT BELT AND CANE TO BATHROOM TO VOID. STOOL X1 THIS SHIFT. PRN ATIVAN AND MELATONIN AT HS. VOIDED PER URINAL OVERNIGHT. NO C/O PAIN. SLEPT WELL. CALL LIGHT IN REACH, BED ALARM ON FOR SAFETY. HOURLY ROUNDING IN PROGRESS, WILL CONTINUE TO MONITOR.
[2020-09-16 07:41] VITALS: BP 117/85
--- NOTE | 2020-09-16 17:28 | NUR ---
PT UP WITH GAIT BELT AND CANE. AMBULATED WITH STB ASSIST IN HALLWAY. PRN ATIVAN GIVEN PER PT REQUEST. DENIES PAIN. FALL PRECAUTIONS IN PLACE. CALL LIGHT IN REACH.
[2020-09-16 19:00] VITALS: BP 136/64
--- NOTE | 2020-09-17 05:43 | NUR ---
ASSUMED PT CARE AT 1930. PT ALERT AND ORIENTED X4, POLITE AND COOPERATIVE WITH CARES. PRN ATIVAN AND MELATONIN WITH HS MEDS. VOIDED PER URINAL OVERNIGHT. NO C/O PAIN. SLEPT WELL. CALL LIGHT IN REACH, BED ALARM ON FOR SAFETY. HOURLY ROUNDING IN PROGRESS, WILL CONTINUE TO MONITOR.
[2020-09-17 08:20] VITALS: BP 127/77
--- NOTE | 2020-09-17 17:00 | NUR ---
PT UP WITH CANE AND GAIT BELT. REFUSES TO WEAR GAIT BELT AT TIMES. PT EDUCATED ON REASONS THE GAIT BELT IS USED. PT CONTINUED TO REFUSE TO WEAR IT. PT IS IMPULSIVE. SETS BED ALARM OFF FREQUENTLY. PEG TUBE AREA CLEANED AND NEW SPOUNGE PUT IN PLACE. BETADINE APPLIED TO NECROTIC TOES. REMAINS ON SPECIAL CONTACT PRECAUTIONS. FALL PRECAUTIONS IN PLACE. CALL LIGHT IN REACH.
[2020-09-17 20:00] VITALS: BP 119/63
--- NOTE | 2020-09-18 05:23 | NUR ---
PT SLEPT WELL ON AND OFF OVERNIGHT. SETTING OFF BED ALARM TO SIT ON SIDE OF BED FOR COMFORT AT TIMES. VOIDING PER URINAL OVERNIGHT WITHOUT DIFFICULTY. RECEIVING LORAZEPAM AND TYLENOL THIS MORNING, CO L FOOT PAIN 06/07. UP WITH CANE, GB AND ASSIST-REFUSING GB THIS SHIFT WHEN UP. AOX4, CAN BE IMPULSIVE. REMAINS ON SP CONTACT PRECAUTIONS FOR MULIT RESISTANT ORGANISMS. ABLE TO USE CALL LITE AND MAKE NEEDS KNOWN.
[2020-09-18 07:55] VITALS: BP 112/77
--- NOTE | 2020-09-18 15:22 | NUR ---
CM SPOKE TO THE PT TO DISCUSS ANY QUESTIONS OR CONCERNS THAT HE MAY HAVE. PT INFORMS THAT HE IS READY TO GO HOME THIS WEEK. CM INFORMED THE PT THAT WE NEED TO BE VERY INTENTIONAL WHEN PLANNING HIS D/C WITHOUT INSURANCE HE WILL NOT HAVE ANY F/U OR HH, AND THAT HE WILL NEED TO BE BE MOSTLY INDEPENDENT WITH ACTIVITY AND MOBILITY. PT CONFIRMS UNDERSTANDING. CM ATTEMPTED TO CONTACT PT'S SPOUSE AND LEFT A VOICEMAIL TO RETURN CALL TO DISUCSS THE SAME. CM WILL REMAIN AVAILABLE TO ASSIST AND FOLLOW NEEDED.
--- NOTE | 2020-09-18 16:34 | NUR ---
PT WORKED WITH THERAPIES. UP WITH CANE AND STB ASSIST. PRN PAIN MEDICATION GIVEN FOR REPORT OF L ANKLE PAIN. DR WINN NOTIFIED. XRAY OF L ANKLE NEG. DRESSING TO PEG TUBE AND TRACH SITE CHANGED. SPECIAL PRECAUTIONS IN PLACE. FALL PRECAUTIONS IN PLACE. CALL LIGHT IN REACH.
[2020-09-18 19:00] VITALS: BP 102/71
--- NOTE | 2020-09-19 05:05 | NUR ---
ASSUMED PT CARE AT 1930. PT ALERT AND ORIENTED X4, POLITE AND COOPERATIVE WITH CARES. PRN ATIVAN AND MELATONIN WITH HS MEDS. VOIDED PER URINAL OVERNIGHT. NO C/O PAIN. SLEPT WELL. REMAINS ON SPECIAL CONTACT PRECAUTIONS. CALL LIGHT IN REACH, BED ALARM ON FOR SAFETY. HOURLY ROUNDING IN PROGRESS, WILL CONTINUE TO MONITOR.
[2020-09-19 07:40] VITALS: BP 123/86
[2020-09-19 08:51] LABS: HEMATOCRIT 34.1 % (42.0-52.0); HEMOGLOBIN 11.4 gm/dL (14.0-18.0); MCH 29.8 pg (26.0-34.0); MCHC 33.5 g/dL (28.0-37.0); MPV 7.3 fl. (7.2-11.1); RBC 3.83 mil/uL (4.50-6.00); RDW-CV 15.4 % (10.5-14.5); WBC 11.3 thou/uL (4.0-11.0)
[2020-09-19 09:03] LABS: ALBUMIN 3.1 g/dL (3.4-5.0); CALCIUM 8.9 mg/dL (8.5-10.1); CREATININE 0.8 mg/dL (0.6-1.3); MAGNESIUM 1.4 mg/dL (1.8-2.4); POTASSIUM 3.8 mmol/L (3.5-5.1); TOTAL BILIRUBIN 0.5 mg/dL (<0.1-1.0); TOTAL PROTEIN 7.6 g/dL (6.4-8.2)
--- NOTE | 2020-09-19 17:06 | NUR ---
PATIENT COMPLETED THERAPIES THIS SHIFT ORDERED. MG THIS AM 1.4, REPLACED PER PROTOCOL AND LAB REDRAW TONIGHT. UP WITH ASSISTANCE, GAIT BELT AND CANE. VOIDING PER URINAL, BM NOTED. PRN TYLENOL AND PRN VOLTAREN GEL GIVEN PER MAY ORDERS FOR LEFT ANKLE PAIN. PATIENT TO BE NPO AFTER MIDNIGHT FOR ABD US. PRN ATIVAN GIVEN X 1 THIS SHIFT.
[2020-09-19 19:45] VITALS: BP 132/85
--- NOTE | 2020-09-20 05:16 | NUR ---
ASSUMED PT CARE AT 1930. PT ALERT AND ORIENTED X4, POLITE AND COOPERATIVE WITH CARES. PRN ATIVAN AND MELATONIN WITH HS MEDS. VOIDED PER URINAL OVERNIGHT. NO C/O PAIN. PT NPO AT MIDNIGHT FOR ABDOMINAL ULTRASOUND. SLEPT WELL. CALL LIGHT IN REACH, BED ALARM ON FOR SAFETY. HOURLY ROUNDING IN PROGRESS, WILL CONTINUE TO MONITOR.
[2020-09-20 08:44] VITALS: BP 112/72
--- NOTE | 2020-09-20 12:59 | NUR ---
WOUND NURSE: PATIENT SEEN FOR FOLLOW UP ASSESSMENT. PATIENT REMAINS WITH STABLE BLACKENED ESCHARS ON TOES AND SOME PEELING AWAY AND EXPOSING NORMAL SKIN AND SCAR TISSUE. APPLIED BETADINE TO AFFECTED AREAS AND LET DRY. THIS WAS TOLERATED WELL BY THE PATIENT. PATIENT REINSTRUCTED ON MEASURES TO PROMOTE HEALING AND PREVENT COMPLICATING FACTORS WITH GOOD UNDERSTANDING ACHIEVED.
--- NOTE | 2020-09-20 16:45 | NUR ---
PT REMAINED ALERT AND ORIENTED AND ANXIOUS AT TIMES. ANXIETY MEDS GIVEN PRN ORDERED. U/S ABD COMPLETED TODAY. MAGNESIUM REPLACEMENT IN PROCESS. FALL RISK PRECAUTIONS IN PLACE. HOURLY ROUNDING COMPLETED. CALL LIGHT WITHIN REACH.
[2020-09-20 19:00] VITALS: BP 128/89
[2020-09-21 07:50] VITALS: BP 121/88
[2020-09-21 10:27] VITALS: BP 121/88
[2020-09-21] MEDS ORDERED: NEURONTIN 300M300 M2 PO (10:39)
[2020-09-21] MEDS ORDERED: LORATIDINE 10 M10 M1 PO (10:39)
[2020-09-21] MEDS ORDERED: BROVANA15 MCG/2 M INH (10:39)
[2020-09-21] MEDS ORDERED: ALBUTEROL2.5 MG/31 INH (10:39)
[2020-09-21] MEDS ORDERED: SEROQUEL 25 MG25 M1 PO (10:39)
[2020-09-21] MEDS ORDERED: LORAZEPAM 0.50.5 MG PO (10:39)
[2020-09-21] MEDS ORDERED: ELIQUIS5 MG PO (10:39)
--- NOTE | 2020-09-21 17:20 | NUR ---
PATIENT COMPLETED THERAPIES THIS SHIFT ORDERED. UP MOD-I IN ROOM. PATIENT WAS TO DISCHARGE TODAY BUT DISCHARGE ON HOLD UNTIL TOMORROW. PATIENT AND SO NOTIFIED BY [facility] THAT MEDICATION IS NOT YET READY AND GI WAS CONSULTED TO COME REMOVE PEG TUBE, PER GI WILL BE HERE THIS EVENING OR TOMORROW. PATIENT ANXIOUS THIS AFTERNOON REGARDING DISCHARGE, ONE TIME DOSE OF ATIVAN GIVEN IT WAS TOO EARLY FOR Q6 ATIVAN. VOIDING PER URINAL AND TOILET.
[2020-09-21 20:18] VITALS: BP 117/81
--- NOTE | 2020-09-22 06:26 | NUR ---
ASSUMED CARES AT 1920. ALERT AND ORIENTED. ANXIOUS. JANA IN RM. DRSG TO OLD TRACH SITE IN PLACE. TYLENOL GIVEN FOR FEET PAIN. AT 0, PT WORRIED THAT WAS UNABLE TO REACH GIRLFRIEND BY PHONE. SAYS THAT THIS WAS NOT LIKE HER TO DO THAT. TOLD PT THAT COULD TRY TO CALL IN AM. PT WAS FINALLY ABLE TO SLEEP AFTER 2400. CALL LIGHT IN REACH.
[2020-09-22 07:40] VITALS: BP 123/75
[2020-09-22 16:00] VITALS: BP 128/85
--- NOTE | 2020-09-22 18:17 | NUR ---
PATIENT NPO THIS AM AWAITING GI CONSULT. PATIENT DOWN THIS AFTERNOON TO HAVE EGD WITH PEG TUBE REMOVAL. PATIENT OK TO DISCHARGE HOME WITH SO AFTER PROCEDURE IF TOLERATING DIET AND DOING WELL. DRESSING TO ABD D/I, DUE FOR REMOVAL TOMORROW. PER CM PATIENT MEDS READY FOR PICKUP, NEBULIZER AND CANE LEFT HERE AT NURSES STATION FOR PATIENT. PATIENT NOTIFIED THAT HE WOULD NEED TO STAY OVERNIGHT IF SO COULD NOT PICK HIM UP TONIGHT, PATIENT VERBALIZES UNDERSTANDING. DR. WINN UPDATED. PRN ATIVAN GIVEN X 2 THIS SHIFT FOR ANXIETY. AWAITING PATIENT PLAN FOR DISCHARGE.
--- NOTE | 2020-09-22 22:19 | NUR ---
ASSUMED CARE AT 191. PT GIRLFRIEND ARRIVED AND STATED THERE WERE ISSUES WITH GETTING RX AT [facility]. [facility] [employer] CONTACTED. [facility] STATED THIS ISSUE WAS UNABLE TO BE RESOLVED TONIGHT. PT WAS INFORMED OF THIS AND WAS ADVISED TO STAY THE NIGHT. PT UPSET, FRUSTRATED AND ANXIOUS THAT MAY NEED TO STAY ANOTHER NIGHT. HE WAS ADAMANT ABOUT LEAVING. [employer] TALKED WITH PT AND GIRLFRIEND. PT INFORMED OF RECOMMENDATION TO STAY AND THAT IF HE LEFT, HE MAY BE WITHOUT MEDS AT HOME UNTIL ISSUE WAS RESOLVED. PT VERBALIZED UNDERSTANDING OF RISKS AND STILL WANTED TO LEAVE. DISCHARGE PAPERS REVIEWED WITH PT AND GIRLFRIEND. AT 2144, PT TAKEN BY W/C WITH BELONGINGS TO CAR.
--- NOTE | 2020-09-23 01:18 | NUR ---
SPOKE WITH MR. RICK REGARDING HIS MEDICATIONS. UNABLE TO GET MEDS FILLED BECAUSE OF APPARENT CONTRACT DISPUTE WITH THIS HOSPITAL AND [facility] PT FRUSTRATED AND UPSET, STATES HE JUST WANTS TO GO HOME. ENCOURAGED TO SPEND THE NIGHT SO THAT HE CAN GET HIS MEDS AND GIVE CM TIME TO WORK OUT DISPUTE WITH [facility]. UNWILLING TO STAY. PT AND SO REASSURED THAT WE WILL TRY TO RESOLVE THIS ISSUE TYLOR AND GET HIM THE MEDS HE NEEDS. ENCOURAGED TO RETURN TO ED IMMEDIATELY IF CONCERNING SYMPTOMS ARISE. LEFT VIA W/C.
--- NOTE | 2020-09-25 19:17 | NUR ---
Spoke to Audrey and informed her that the following meds will be covered through the CM dept via [facility] pharmacy Brovana inhaler 15mcg INH RT BID Eliquis 5mg po BID Total cost: $929.36 (meds to be charged to [facility] CM Dept) Meds approved by CNO and [employer]. was able to purchase the albuterol, gabapentin and lorazepam. to pick out hand meds and bathtub transfer bench tomorrow afternoon. CNO and [employer] RE[employer] approved purchase of bench ($53.98). CM Dir to call once meds are curried over to [facility] in the morning. was very appreciative of the help provided to her. No other CM needs noted at this time.
== END 2020-09-22 21:45 | disposition home or self-care (01) | DRG 91 ==
LOC: M.REH 17:16
PROVIDERS: Family Medicine; Internal Medicine; ADMIT Physical Medicine & Rehabilitation; ATTEND Physical Medicine & Rehabilitation
PROC: 5A0935A Assistance with Respiratory Ventilation, Less than 24 Consecutive Hours, High Flow/Velocity Cannula (ICD-10-PCS; principal; 2020-09-07)
PROC: 0DP6XUZ Removal of Feeding Device from Stomach, External Approach (ICD-10-PCS; 2020-09-22)
DX: G72.81 Critical illness myopathy (principal); J96.01 Acute respiratory failure with hypoxia; N17.9 Acute kidney failure, unspecified; I96 Gangrene, not elsewhere classified; R13.10 Dysphagia, unspecified; I10 Essential (primary) hypertension; F15.10 Other stimulant abuse, uncomplicated; R53.81 Other malaise; F32.9 Major depressive disorder, single episode, unspecified; K76.0 Fatty (change of) liver, not elsewhere classified; K44.9 Diaphragmatic hernia without obstruction or gangrene; Z93.0 Tracheostomy status; Z90.49 Acquired absence of other specified parts of digestive tract; Z93.1 Gastrostomy status; Z86.16 Personal history of COVID-19; Z79.899 Other long term (current) drug therapy; Z79.01 Long term (current) use of anticoagulants; Z86.718 Personal history of other venous thrombosis and embolism; Z87.01 Personal history of pneumonia (recurrent)

== ENCOUNTER 2020-09-28 21:48 | Inpatient (IN) | payer OTHER ==
[~2020-09-28] VITALS: Ht 180.3 cm; Wt 68.0 kg
[~2020-09-28 21:48] MED LIST changes: +ALBUTEROL2.5 MG/31 INH; +ALPRAZOLAM XR3 MG PO; +BROVANA15 MCG/2 M INH; +ELIQUIS5 MG PO; +HUMALOG KW100 UNIT/1; +IPRAT-ALBUT 0.5-3 ML INH; +LORATIDINE 10 M10 M1 PO; +LORAZEPAM 0.50.5 MG PO; +METOCLOPRAMIDE 55 M1 PO; +NEURONTIN 300M300 M2 PO; +PERIDEX 0.12%473 M1 MUCOUS MEM; +PROTONIX40 M2 PO; +SEROQUEL 25 MG25 M1 PO; +SEROQUEL XR1 EACH PO
[2020-09-28 21:53] VITALS: BP 141/96
[2020-09-28] MEDS ORDERED: BENADRYL25 MG PO (21:59)
[2020-09-28 23:51] LABS: ABSOLUTE BASOPHILS 0.1 thou/uL (0.0-0.2); ABSOLUTE EOSINOPHILS 0.7 thou/uL (0.0-0.7); ABSOLUTE LYMPHOCYTES 3.5 thou/uL (0.8-5.3); ABSOLUTE MONOCYTES 1.1 thou/uL (0.0-1.2); ABSOLUTE NEUTROPHILS 9.1 thou/uL (1.6-8.1); BASOPHILS 0.5 %; EOSINOPHILS 4.8 %; HEMATOCRIT 35.2 % (42.0-52.0); LYMPHOCYTES 24.4 %; MCH 30.1 pg (26.0-34.0); MCHC 34.1 g/dL (28.0-37.0); MCV 88.3 fL (80.0-100.0); MONOCYTES 7.6 %; MPV 7.6 fl. (7.2-11.1); NUCLEATED RBCS 0 /100WBC; PLATELET COUNT* 555 thou/uL (150-400); POLYS 62.7 %; RBC 3.99 mil/uL (4.50-6.00); RDW-CV 16.1 % (10.5-14.5); WBC 14.4 thou/uL (4.0-11.0)
[2020-09-29 00:07] LABS: APTT 29.8 Seconds (25.0-31.3); PROTIME 10.8 Seconds (9.20-11.50)
[2020-09-29 00:21] LABS: CALCIUM 9.7 mg/dL (8.5-10.1)
[2020-09-29 00:26] LABS: ALBUMIN 3.7 g/dL (3.4-5.0); TOTAL BILIRUBIN 0.7 mg/dL (<0.1-1.0); TOTAL PROTEIN 8.7 g/dL (6.4-8.2)
--- NOTE | 2020-09-29 00:47 | NUR ---
PT SIG OTHER YUN [phone]
[2020-09-29 06:25] VITALS: BP 113/53; BP 130/91
[2020-09-29 12:07] VITALS: BP 113/72
[2020-09-29 12:18] VITALS: BP 114/71
[2020-09-29 13:00] LABS: URINE BILIRUBIN NEGATIVE (Negative); URINE BLOOD NEGATIVE (Negative); URINE CLARITY CLEAR; URINE COLOR YELLOW; URINE GLUCOSE-RANDOM NEGATIVE (Negative); URINE KETONES NEGATIVE (Negative); URINE LEUKOCYTES-REFLEX NEGATIVE (Negative); URINE NITRITE-REFLEX NEGATIVE (Negative); URINE PROTEIN NEGATIVE (Negative); URINE UROBILINOGEN 0.2 E.U./dl (0.2-1.0)
[2020-09-29 13:19] LABS: AMP/METHAMP Negative (Negative); BARBITURATES Negative (Negative); BENZODIAZEPINES Negative (Negative); COCAINE Negative (Negative); METHADONE Negative (Negative); OPIATES Negative (Negative); PCP Negative (Negative); THC Negative (Negative)
[2020-09-29 15:08] VITALS: BP 114/71
[2020-09-29] MEDS ORDERED: CIPRO500 M1 PO (15:19)
[2020-09-29] MEDS ORDERED: doxycycline PO (15:22)
[2020-09-29 15:25] VITALS: BP 114/71
[2020-09-29 18:07] VITALS: BP 114/71
== END 2020-09-29 12:10 | disposition home or self-care (01) | DRG 540 ==
LOC: M.ERS 21:48 → M.TBA-ER 09-29 02:26
PROVIDERS: Personal Emergency Response Attendant; ADMIT Internal Medicine; ATTEND Internal Medicine
DX: M86.8X7 Other osteomyelitis, ankle and foot (principal); I96 Gangrene, not elsewhere classified; R65.10 Systemic inflammatory response syndrome (SIRS) of non-infectious origin without acute organ dysfunction; I10 Essential (primary) hypertension; Z93.1 Gastrostomy status; Z86.16 Personal history of COVID-19; Z86.718 Personal history of other venous thrombosis and embolism; Z87.01 Personal history of pneumonia (recurrent); Z20.822 Contact with and (suspected) exposure to COVID-19

== ENCOUNTER 2020-10-29 05:55 | Emergency (ER) | payer OTHER ==
[~2020-10-29] VITALS: Ht 180.3 cm; Wt 95.7 kg
[~2020-10-29 05:55] MED LIST changes: +BENADRYL25 MG PO; +CIPRO500 M1 PO; +doxycycline PO
[2020-10-29] MEDS ORDERED: ATIVAN1 M1 PO (06:10)
[2020-10-29] MEDS ORDERED: ATIVAN0.5 M1 PO (07:19)
[2020-10-29] MEDS ORDERED: ELIQUIS5 MG PO (07:19)
[2020-10-29] MEDS ORDERED: NEURONTIN 300M300 M2 PO (07:19)
[2020-10-29] MEDS ORDERED: PROAIR HFA8.5 GM INH (07:19)
[2020-10-29 07:30] VITALS: BP 175/95
== END 2020-10-29 07:30 | disposition home or self-care (01) ==
LOC: M.ERS 05:55
DX: F41.9 Anxiety disorder, unspecified (principal); Z76.0 Encounter for issue of repeat prescription; I10 Essential (primary) hypertension; Z90.49 Acquired absence of other specified parts of digestive tract